=== PATIENT | female | born 1970 | race Caucasian/White ===

== ENCOUNTER 2016-08-19 18:59 | Emergency (ER) | payer OTHER ==
[~2016-08-19] VITALS: Ht 156.2 cm; Wt 54.5 kg
[2016-08-19 19:06] VITALS: BP 130/86; PULSE 74; RESP 16; O2SAT 97
--- NOTE | 2016-08-19 20:05 | ED.REPORT ---
HPI-Extremity Problem Lower Date of Service August 19, 2016 ED Provider: Doc,Ed MD Pt is an otherwise healthy 45 year old female who presents to the ED with a left knee laceration after a ground fall prior to arrival. Pt was [place] and fell on loose gravel at 6:30PM. She does not know when her last tetanus shot was. Pt denies taking any current medications. Pt denies pain with walking. No head injury or other sites of injury. She denies any other symptoms, specifically numbness or weakness of her leg. PCP: Dr. Dai Bryson in [facility] Notes Stated Complaint: LEFT KNEE LACERATION Chief Complaint: Extremity Trauma Nursing Notes Reviewed: Yes Allergies: Coded Allergies: No Known Allergies (Unverified , 08/19/16) General Time Seen by MD: 20:05 Chief Complaint Knee injury left (Laceration) Hx Obtained From: Patient Arrived By: Walk-in Onset Occurred: Just prior to arrival Symptom Duration: Since onset Caused by: Fall on ground (Loose gravel) Location: : Knee left (Laceration) Quality: Painful Severity: Current: Moderate Severity: Maximum: Moderate Immunizations: Unknown Similar Sx Previous: No Past Medical History Past Medical History Denies Past Surgical History None reported Social History Pt is , and her races. Pt lives in [place] with her and 2 kids. Ambulatory Status Independent Review of Systems + Left knee laceration Basic Review of Systems Eyes: Vision NL ENT: Hearing NL Respiratory: No shortness of breath Cardiovascular: No chest pain GI: No abdominal pain Psychiatric: Normal thought content Constitutional: Denies: Chills, Fever Musculoskeletal: Reports: Extremity pain Skin: Denies Rash, Denies Swelling Neurologic: Denies: Numbness, Weakness Complete sys rev & neg: except as marked. Physical Exam Initial Vital Signs Vital Signs (First) Date Time Temp Pulse Resp B/P Pulse Ox O2 Delivery O2 Flow Rate FiO2 08/19/16 19:06 36.4 74 16 130/86 97 Room Air Initial VS: Reviewed Head / Eyes: Atraumatic, Normocephalic, PERRL ENT: Mucous membranes moist, Conjunctiva normal, No scleral icterus Neck: Supple, Non-tender, Full range of motion Respiratory: Breath sounds normal, No respiratory distress Abdomen / GI: Soft, Non-tender Upper Extremities: Vascular intact, Neuro intact Skin: Warm, Dry, No cyanosis Neurologic: Alert, Oriented, Nonfocal Psychiatric: Mood/affect normal, Behavior normal, Normal thought content Lower Extremity / Pelvis / MS: Full range of motion, No swelling, No erythema, No deformity, Neurologic intact, Vascular intact, Tendon function NL, No compartment syndrome, No circumferential injury, Pelvis stable, Pelvis non- tender 5 cm flap laceration. Slight abrasion on the lower abbott. Ankle / Foot: Atraumatic, Inspection NL, Full range of motion, No swelling, No erythema, Non-tender, No deformity, Neurologic intact, Vascular intact, No edema General/Constitutional: Awake, Alert, No acute distress, Well appearing, Cooperative, Not toxic appearing Procedures Laceration Management Time: 20:25 Procedure Performed by: ED physician Consent / Setup / Site Prep: Consent from patient, Time-out performed, Hand hygiene observed, Stand sterile technique Location of Wound: Left knee Wound Length: 5 cm Local Anesthesia: Lidocaine w epi 1% Wound Preparation: Hibiclens - Chlorhexidine Debridement: None Irrigation: Copious (About 1 L) Foreign Body Explore / Removal: Partial removal (Mud and gravel removed; some unknown mondragon matter remained) Undermining / Margins: Flaps aligned Repair Skin: ___ O (3), Nylon # Sutures - Skin: 10 Closure Layers: 1 Suture Technique: Simple Post-Procedure / Complications: Dressing applied, No complications, Condition improved, Tolerated procedure well, Patient stable Re-Eval/Medical Decision Re-Evaluation/Progress : Time of Eval: 21:15 Re-Evaluation/Progress Note: Pt given F/U and RTER instructions/warnings at end of procedure. Counseled Regarding: Diagnosis, Need for follow-up, When/why to return to ED Discharge & Departure Impression: Primary Impression: Laceration of left knee Encounter type: initial encounter Qualified Code: S81.012A - Laceration without foreign body, left knee, initial encounter Additional Impression: Fall from ground level Disposition: Home Discharge Condition All VS Reviewed: Yes Condition: Stable Patient Instructions: Laceration (ED) Additional Instructions: You have a laceration on your left knee. For the first 3-4 days, Keep your injury moist with Bacitracin (provided) or a triple antibiotic. Put it on a couple times a day. Do not get it wet for the next 24 hours; no baths or pools. We recommend that you see a medical profession to have the sutures removed in 2 weeks. If you take them out yourself, they have to stay in for 2 weeks. If you get steri strips, you can put them on for 1 week. Return to the Emergency Department if you experience fever; or if you notice redness, draining pus, streaks up leg; or if you have any other concerns. Return to your primary care provider as normally scheduled. Referrals: OTHER,PHYSICIAN (PCP) Scribe Attestation Portions of this note were transcribed by Asher Alcala and Nichole Ortega. I, Dr. Lara personally performed the history, physical exam and medical decision -making; I reviewed and confirmed the accuracy of the information in the transcribed note. Signed by: Asher Alcala and Courtney Pang, 08/19/16 and 2049. copies to: TRENT,Len Leon DO August 19, 2016 20:05 Nichole Adhikari August 19, 2016 20:13 ASHER ALCALA August 19, 2016 21:55
[2016-08-19] MEDS ORDERED: Lidocaine-Epi-Tetracaine Solution 3 mL Syringe TOPICAL ONE (20:20)
[2016-08-19] MEDS ORDERED: Lidocaine 1%/Epi 1:100,000 30 mL MDV ONE (20:22)
[2016-08-19] MEDS ORDERED: TdaP Vaccine 0.5 mL Inj IM ONE (20:25)
[2016-08-19 21:00] VITALS: BP 131/67; PULSE 76; RESP 17; O2SAT 98
== END 2016-08-19 20:55 | disposition home or self-care (01) ==
LOC: SED 18:59
DX: S81.012A Laceration without foreign body, left knee, initial encounter (principal); W18.30XA Fall on same level, unspecified, initial encounter; Y92.410 Unspecified street and highway as the place of occurrence of the external cause; Y93.02 Activity, running; Y99.8 Other external cause status; Z23 Encounter for immunization